=== PATIENT | male | born 1940 | race Caucasian/White ===

== ENCOUNTER 2022-03-02 22:35 | Emergency (ER) | payer MEDICARE, OTHER ==
[~2022-03-02] VITALS: Ht 172.7 cm; Wt 65.9 kg
[2022-03-02 23:47] VITALS: BP 130/85
== END 2022-03-03 04:00 | disposition home or self-care (01) ==
LOC: ER 22:35
DX: S50.811A Abrasion of right forearm, initial encounter (principal); M54.6 Pain in thoracic spine; W18.39XA Other fall on same level, initial encounter; Y93.89 Activity, other specified; Y92.89 Other specified places as the place of occurrence of the external cause; Y99.8 Other external cause status
CPT/HCPCS: 71045; 71250; 73090; 73562; 74176

== ENCOUNTER 2023-07-25 09:23 | Inpatient (IN) | payer OTHER ==
[~2023-07-25] VITALS: Ht 175.3 cm; Wt 55.8 kg
[2023-07-25] VITALS (26 sets, daily range): BP systolic 114–159; BP diastolic 14–110; PULSE 69–114; RESP 15–92; TEMP 97.5–98; O2SAT 89–97
[2023-07-25 10:09] LABS: Hematocrit 41.1 % (41.0-53.0); Hemoglobin 13.4 g/dL (13.5-17.5); Mean Corpuscular Hgb Conc. 32.5 g/dL (32.0-36.0); Mean Corpuscular Volume 92.2 fL (80.0-100.0); Red Blood Cells 4.46 10^6/uL (4.5-5.90); Red Cell Distribution Width 14.9 % (11.8-14.3); White Blood Cell 11.9 10^3/uL (4.4-10.8)
[2023-07-25 10:22] LABS: Band Neutrophils % (manual) 0; Basophils % (manual) 0 (0.0-2.0); Blast Cells 0; Eosinophils % (manual) 0 (0-7); Metamyelocytes % 0; Myelocytes % 0; Promyelocytes % 0; Reactive Lymphocytes 0
[2023-07-25 10:41] LABS: Lymphocytes % (manual) 3 (10.0-50.0); Monocytes % (manual) 6 (0-12); Platelet Estimate Adequate
[2023-07-25 10:44] LABS: Alanine Aminotransferase 29 U/L (7-40); Albumin 3.8 g/dL (3.2-4.8); Alkaline Phosphatase 70 U/L (46-116); Anion Gap 12 (5-15); Aspartate Aminotransferase 35 U/L (13-40); BUN/Creatinine Ratio 23.9 (10.0-20.0); Blood Urea Nitrogen 37 mg/dL (9-23); Calcium 8.6 mg/dL (8.7-10.4); Carbon Dioxide 24 mmol/L (20-30); Chloride 110 mmol/L (98-107); Glucose 125 mg/dL (74-106); Magnesium 2.1 mg/dL (1.6-2.6); Potassium 3.8 mmol/L (3.5-5.1); Sodium 146 mmol/L (136-145)
[2023-07-25 10:45] LABS: Bilirubin, Total 2.3 mg/dL (0.2-1.0)
[2023-07-25] MEDS: AMIODARONE 450mg/250ml AE 250 ML IV SCH (10:52)
[2023-07-25] MEDS: AMIODARONE BOLUS KIT 100 ML IV ONE (10:52)
[2023-07-25] MEDS: FUROSEMIDE 40 MG/4 ML VIAL IV ONE (12:05)
[2023-07-25 13:12] LABS: Urine Bacteria NONE SEEN /hpf (None Seen); Urine Blood 1+ /uL (Negative); Urine Clarity Clear (Clear); Urine Color Yellow (Yellow); Urine Hyaline Cast FEW /lpf (0 - 2); Urine Mucus FEW (None Seen); Urine Protein, UAD 1+ (Negative); Urine Specific Gravity 1.014 (1.001-1.035); Urine Urobilinogen Normal (Negative); Urine WBC 19 /hpf (0 - 3); Urine pH 5.5 (5.0-8.0)
[2023-07-25] MEDS ORDERED: ONDANSETRON HCL 4 MG/2 ML VIAL IV PRN (13:15)
[2023-07-25] MEDS ORDERED: NITROGLYCERIN 0.4 MG SL TAB SL PRN (13:15)
[2023-07-25] MEDS ORDERED: MORPHINE SULFATE INJ 2 MG/ml SYRG IV PRN (13:15)
[2023-07-25] MEDS ORDERED: LABETALOL HCL 5 MG/ML 4ML SYRINGE IV PRN (14:15)
[2023-07-25 14:57] LABS: INR 1.31 (0.9-1.15); Partial Thromboplastin Time 21.2 SEC (24.5-34.5); Prothrombin Time 13.5 sec (9.3-11.8)
[2023-07-25 15:29] LABS: COVID19 ANTIGEN SOFIA FIA NEGATIVE (NEGATIVE)
[2023-07-25] MEDS: MAGNESIUM SULFATE 1GM/100ML 100 ML IV SCH (15:30)
[2023-07-25 15:37] LABS: Lactic Acid w/Reflex 2.5 mmol/L (0.4-2.0)
[2023-07-25 15:42] LABS: Triglycerides 60 mg/dL (< 150)
[2023-07-25] MEDS: AZITHROMYCIN 500MG/ 250ML 250 ML IV ONE (15:42)
[2023-07-25] MEDS: cefTRIAXone 1GM/50ML D5W 50 ML IV ONE (15:42)
[2023-07-25 15:43] LABS: LDL Cholesterol 69 mg/dL (< 100)
[2023-07-25] MEDS: SODIUM CHLORIDE 0.9% 1,000 ML IV ONE (15:43)
[2023-07-25] MEDS: ASPirin 325 MG TAB PO ONE (15:43)
[2023-07-25 15:44] LABS: Cholesterol 136 mg/dL (< 200); HDL Cholesterol 55 mg/dL (40-59)
[2023-07-25] MEDS: METOPROLOL TARTRATE 50 MG TAB PO SCH (15:51)
[2023-07-25] MEDS: AMIODARONE 450mg/250ml AE 250 ML IV ONE (18:41)
[2023-07-25] MEDS: FUROSEMIDE 20 MG/2 ML VIAL IV SCH (18:44)
[2023-07-25] MEDS: IPRATROPIUM BROM 0.5 MG/2.5ML INH SOL NEB SCH (19:32)
[2023-07-25] MEDS: LEVALBUTEROL HCL 1.25 MG/3 ML NEB NEB SCH (19:33)
[2023-07-25] MEDS: ATORVASTATIN 20 MG TAB PO SCH (22:49)
[2023-07-25] MEDS: ENOXAPARIN SOD 100 MG/1 ML SYRINGE SC SCH (22:49)
[2023-07-25] MEDS: HYDROcodone-ACET 5/325MG TAB PO PRN (22:51)
[2023-07-26] VITALS (42 sets, daily range): BP systolic 111–172; BP diastolic 79–110; PULSE 54–96; RESP 12–35; TEMP 96.5–98; O2SAT 90–99
[2023-07-26] MEDS ORDERED: AMIODARONE 450mg/250ml AE 250 ML IV SCH (02:15)
[2023-07-26 05:25] LABS: Basophils # (auto) 0 10 ^3/uL (0-0.2); Basophils % (auto) 0.2 % (0.0-2.0); Eosinophils # (auto) 0 10 ^3/uL (0-0.8); Hematocrit 37.7 % (41.0-53.0); Hemoglobin 12.4 g/dL (13.5-17.5); Lymphocytes # (auto) 0.5 10 ^3/uL (0.4-5.4); Lymphocytes % (auto) 4.6 % (10.0-50.0); Mean Corpuscular Hemoglobin 30.1 pg (28.0-32.0); Mean Corpuscular Hgb Conc. 32.8 g/dL (32.0-36.0); Mean Corpuscular Volume 91.8 fL (80.0-100.0); Monocytes # (auto) 0.9 10 ^3/uL (0-1.3); Monocytes % (auto) 7.4 % (0.0-12.0); Neutrophils # (auto) 10.3 10 ^3/uL (1.6-8.6); Neutrophils % (auto) 87.8 % (37.0-80.0); Red Blood Cells 4.11 10^6/uL (4.5-5.90); Red Cell Distribution Width 14.7 % (11.8-14.3); White Blood Cell 11.7 10^3/uL (4.4-10.8)
[2023-07-26 05:38] LABS: Alanine Aminotransferase 165 U/L (7-40); Alkaline Phosphatase 62 U/L (46-116); Anion Gap 10 (5-15); BUN/Creatinine Ratio 26.3 (10.0-20.0); Blood Urea Nitrogen 44 mg/dL (9-23); Calcium 8.1 mg/dL (8.7-10.4); Carbon Dioxide 26 mmol/L (20-30); Chloride 107 mmol/L (98-107); Glucose 106 mg/dL (74-106); Magnesium 2.5 mg/dL (1.6-2.6); Potassium 3.9 mmol/L (3.5-5.1); Sodium 143 mmol/L (136-145)
[2023-07-26 05:39] LABS: Albumin 3.2 g/dL (3.2-4.8); Aspartate Aminotransferase 214 U/L (13-40)
[2023-07-26 05:40] LABS: Bilirubin, Total 1.4 mg/dL (0.2-1.0); Total Protein 5.1 g/dL (5.7-8.2)
[2023-07-26 06:02] LABS: Triglycerides 45 mg/dL (< 150)
[2023-07-26 06:03] LABS: LDL Cholesterol 64 mg/dL (< 100)
[2023-07-26 06:04] LABS: Cholesterol 124 mg/dL (< 200); HDL Cholesterol 49 mg/dL (40-59)
[2023-07-26] MEDS: cefTRIAXone 1GM/50ML D5W 50 ML IV SCH (08:57)
[2023-07-26] MEDS ORDERED: FUROSEMIDE 20 MG/2 ML VIAL IV SCH (10:00)
[2023-07-26] MEDS ORDERED: ENOXAPARIN SOD 40 MG/0.4 ML SYRINGE SC SCH (10:00)
[2023-07-26] MEDS: PANTOPRAZOLE 40 MG TAB PO SCH (10:03)
[2023-07-26] MEDS: ASPirin-EC 81 mg tab PO SCH (10:03)
[2023-07-26] MEDS: AZITHROMYCIN 500MG/ 250ML 250 ML IV SCH (10:05)
[2023-07-26] MEDS: FUROSEMIDE 20 MG/2 ML VIAL IV ONE ×2 (13:38→14:07)
[2023-07-26] MEDS: FUROSEMIDE 20 MG/2 ML VIAL ONE (13:38)
[2023-07-26] MEDS: AMIODARONE HCL 200 MG TAB PO ONE (14:07)
[2023-07-26 14:25] LABS: Base Excess -7.2 mmol/L (-2.0-2.0)
[2023-07-26] MEDS: hydrALAZINE HCL 20 MG/ML VL IV PRN (17:54)
[2023-07-26] MEDS: METOPROLOL TARTRATE 50 MG TAB PO SCH (21:34)
[2023-07-26] MEDS: AMIODARONE HCL 200 MG TAB PO SCH (21:35)
[2023-07-27] VITALS (24 sets, daily range): BP systolic 117–154; BP diastolic 61–90; PULSE 63–110; RESP 9–22; TEMP 97.5–98.3; O2SAT 95–100
[2023-07-27 04:51] LABS: Basophils # (auto) 0 10 ^3/uL (0-0.2); Basophils % (auto) 0.2 % (0.0-2.0); Eosinophils # (auto) 0 10 ^3/uL (0-0.8); Hematocrit 38.9 % (41.0-53.0); Hemoglobin 12.6 g/dL (13.5-17.5); Lymphocytes # (auto) 0.6 10 ^3/uL (0.4-5.4); Lymphocytes % (auto) 4.9 % (10.0-50.0); Mean Corpuscular Hemoglobin 29.8 pg (28.0-32.0); Mean Corpuscular Hgb Conc. 32.5 g/dL (32.0-36.0); Mean Corpuscular Volume 91.7 fL (80.0-100.0); Monocytes # (auto) 0.7 10 ^3/uL (0-1.3); Monocytes % (auto) 5.6 % (0.0-12.0); Neutrophils % (auto) 89.3 % (37.0-80.0); Nucleated Red Blood Cells % 0.1 %; Red Blood Cells 4.24 10^6/uL (4.5-5.90); Red Cell Distribution Width 14.6 % (11.8-14.3); White Blood Cell 12.4 10^3/uL (4.4-10.8)
[2023-07-27 05:14] LABS: Alanine Aminotransferase 996 U/L (7-40); Albumin 2.9 g/dL (3.2-4.8); Alkaline Phosphatase 88 U/L (46-116); Anion Gap 10 (5-15); BUN/Creatinine Ratio 32.1 (10.0-20.0); Bilirubin, Total 1.2 mg/dL (0.2-1.0); Calcium 7.9 mg/dL (8.7-10.4); Carbon Dioxide 27 mmol/L (20-30); Chloride 106 mmol/L (98-107); Glucose 94 mg/dL (74-106); Magnesium 2.3 mg/dL (1.6-2.6); Phosphorus 5.8 mg/dL (2.4-5.1); Potassium 3.6 mmol/L (3.5-5.1); Sodium 143 mmol/L (136-145); Total Protein 4.8 g/dL (5.7-8.2)
[2023-07-27 05:25] LABS: Aspartate Aminotransferase 1658 U/L (13-40)
[2023-07-27 05:42] LABS: Blood Urea Nitrogen 59 mg/dL (9-23)
[2023-07-27] MEDS: ENOXAPARIN SOD 100 MG/1 ML SYRINGE SC SCH (10:00)
[2023-07-27] MEDS: MUPIROCIN 2% OINT 15gm or 22gm TOP ONE (10:45)
[2023-07-27] MEDS: CEFEPIME 1GM/ 50ML 50 ML IV SCH (12:01)
[2023-07-27] MEDS: FUROSEMIDE 40 MG/4 ML VIAL IV SCH (18:15)
[2023-07-27] MEDS: hydrALAZINE HCL 25 MG TAB PO SCH (21:58)
[2023-07-27] MEDS: LINEZOLID 600MG/300ML 300 ML IV SCH (21:58)
[2023-07-28] VITALS (32 sets, daily range): BP systolic 117–162; BP diastolic 14–76; PULSE 41–88; RESP 11–23; TEMP 97.5–97.9; O2SAT 93–99
[2023-07-28 07:12] LABS: Basophils # (auto) 0 10 ^3/uL (0-0.2); Basophils % (auto) 0.1 % (0.0-2.0); Eosinophils # (auto) 0 10 ^3/uL (0-0.8); Hematocrit 40.5 % (41.0-53.0); Hemoglobin 13.5 g/dL (13.5-17.5); Lymphocytes # (auto) 0.4 10 ^3/uL (0.4-5.4); Mean Corpuscular Hemoglobin 30.3 pg (28.0-32.0); Mean Corpuscular Hgb Conc. 33.2 g/dL (32.0-36.0); Mean Corpuscular Volume 91.1 fL (80.0-100.0); Monocytes # (auto) 0.7 10 ^3/uL (0-1.3); Monocytes % (auto) 6.5 % (0.0-12.0); Neutrophils # (auto) 9.1 10 ^3/uL (1.6-8.6); Neutrophils % (auto) 89.4 % (37.0-80.0); Nucleated Red Blood Cells % 0.1 %; Red Blood Cells 4.45 10^6/uL (4.5-5.90); Red Cell Distribution Width 14.8 % (11.8-14.3); White Blood Cell 10.2 10^3/uL (4.4-10.8)
[2023-07-28 07:30] LABS: Alanine Aminotransferase 819 U/L (7-40); Alkaline Phosphatase 87 U/L (46-116); Anion Gap 12 (5-15); Calcium 8.2 mg/dL (8.5-10.1); Carbon Dioxide 27 mmol/L (20-30); Chloride 103 mmol/L (98-107); Glucose 94 mg/dL (74-106); Potassium 2.6 mmol/L (3.5-5.1); Sodium 142 mmol/L (136-145)
[2023-07-28 07:31] LABS: Albumin 3.1 g/dL (3.2-4.8); Aspartate Aminotransferase 497 U/L (13-40)
[2023-07-28 07:32] LABS: Bilirubin, Total 1.3 mg/dL (0.2-1.0); Phosphorus 4.4 mg/dL (2.4-5.1); Total Protein 5.2 g/dL (5.7-8.2)
[2023-07-28 07:50] LABS: Blood Urea Nitrogen 48 mg/dL (9-23)
[2023-07-28 07:54] LABS: Magnesium 2.1 mg/dL (1.6-2.6)
[2023-07-28] MEDS: POTASSIUM CHLORIDE 60 MEQ, LIDOCAINE 1% (LOCAL ANESTH.) 6 ML in SODIUM CHL 0.9% 500 ML IV ONE (09:17)
[2023-07-28] MEDS: ENOXAPARIN SOD 60 MG/0.6 ML SYRINGE SC SCH (09:30)
[2023-07-28] MEDS: EMPAGLIFLOZIN 10 MG TAB PO SCH (10:00)
[2023-07-28 10:23] LABS: Base Excess 2.3 mmol/L (-2.0-2.0)
[2023-07-28] MEDS: METOPROLOL SUCCINATE XL 50 MG TAB PO SCH (11:30)
[2023-07-28] MEDS: Ensure HIGH Protein Chocolate 8oz Bottle PO SCH (12:00)
[2023-07-28] MEDS: ISOSORBIDE MONONITRATE ER 60 MG TAB PO SCH (13:53)
[2023-07-28 16:39] LABS: Alanine Aminotransferase 726 U/L (7-40); Albumin 2.9 g/dL (3.2-4.8); Alkaline Phosphatase 81 U/L (46-116); Anion Gap 7 (5-15); Aspartate Aminotransferase 343 U/L (13-40); BUN/Creatinine Ratio 25.9 (10.0-20.0); Blood Urea Nitrogen 45 mg/dL (9-23); Calcium 7.7 mg/dL (8.7-10.4); Carbon Dioxide 28 mmol/L (20-30); Chloride 105 mmol/L (98-107); Glucose 120 mg/dL (74-106); Potassium 3.4 mmol/L (3.5-5.1); Sodium 140 mmol/L (136-145)
[2023-07-28 16:40] LABS: Bilirubin, Total 1.1 mg/dL (0.2-1.0); Total Protein 5.1 g/dL (5.7-8.2)
[2023-07-28] MEDS: POTASSIUM EFFERVESENT TAB 25 MEQ PO ONE (17:55)
[2023-07-28] MEDS: POTASSIUM CHLORIDE 20 MEQ, LIDOCAINE 1% (LOCAL ANESTH.) 2 ML in SODIUM CHL 0.9% 100 ML IV ONE (18:34)
[2023-07-29] VITALS (26 sets, daily range): BP systolic 122–167; BP diastolic 56–94; PULSE 70–110; RESP 13–21; TEMP 96.4–98.4; O2SAT 89–100
[2023-07-29 05:07] LABS: Basophils # (auto) 0 10 ^3/uL (0-0.2); Basophils % (auto) 0.3 % (0.0-2.0); Eosinophils # (auto) 0 10 ^3/uL (0-0.8); Eosinophils % (auto) 0.2 % (0.0-7.0); Hematocrit 40.3 % (41.0-53.0); Hemoglobin 13.3 g/dL (13.5-17.5); Lymphocytes # (auto) 0.4 10 ^3/uL (0.4-5.4); Lymphocytes % (auto) 3.9 % (10.0-50.0); Mean Corpuscular Hemoglobin 30.1 pg (28.0-32.0); Mean Corpuscular Volume 91.2 fL (80.0-100.0); Monocytes # (auto) 0.9 10 ^3/uL (0-1.3); Monocytes % (auto) 8.3 % (0.0-12.0); Neutrophils # (auto) 8.9 10 ^3/uL (1.6-8.6); Neutrophils % (auto) 87.3 % (37.0-80.0); Red Blood Cells 4.42 10^6/uL (4.5-5.90); Red Cell Distribution Width 14.8 % (11.8-14.3); White Blood Cell 10.2 10^3/uL (4.4-10.8)
[2023-07-29 05:18] LABS: Alanine Aminotransferase 666 U/L (7-40); Albumin 2.9 g/dL (3.2-4.8); Alkaline Phosphatase 80 U/L (46-116); Anion Gap 9 (5-15); Aspartate Aminotransferase 265 U/L (13-40); BUN/Creatinine Ratio 28.6 (10.0-20.0); Blood Urea Nitrogen 42 mg/dL (9-23); Calcium 7.9 mg/dL (8.7-10.4); Carbon Dioxide 28 mmol/L (20-30); Chloride 104 mmol/L (98-107); Glucose 119 mg/dL (74-106); Phosphorus 2.7 mg/dL (2.4-5.1); Potassium 3.2 mmol/L (3.5-5.1); Sodium 141 mmol/L (136-145)
[2023-07-29 05:19] LABS: Bilirubin, Total 1.5 mg/dL (0.2-1.0); Total Protein 5.2 g/dL (5.7-8.2)
[2023-07-29] MEDS: METOPROLOL SUCCINATE XL 50 MG TAB PO SCH (08:26)
[2023-07-29] MEDS: POTASSIUM CHLORIDE 40 MEQ, LIDOCAINE 1% (LOCAL ANESTH.) 4 ML in SODIUM CHL 0.9% 250 ML IV ONE (09:00)
[2023-07-29 11:01] LABS: Base Excess 4.9 mmol/L (-2.0-2.0)
[2023-07-29] MEDS ORDERED: FUR20T GT (15:02)
[2023-07-29] MEDS ORDERED: METO-6 PO (15:02)
[2023-07-29] MEDS ORDERED: ISO60SRT PO (15:02)
[2023-07-29] MEDS ORDERED: DOXY1CAP57 PO (15:02)
[2023-07-29] MEDS ORDERED: EMPA1TAB PO (15:02)
[2023-07-29 22:28] LABS: Alanine Aminotransferase 544 U/L (7-40); Albumin 3.2 g/dL (3.2-4.8); Alkaline Phosphatase 80 U/L (46-116); Anion Gap 6 (5-15); Aspartate Aminotransferase 228 U/L (13-40); BUN/Creatinine Ratio 27.8 (10.0-20.0); Blood Urea Nitrogen 37 mg/dL (9-23); Calcium 8.1 mg/dL (8.7-10.4); Carbon Dioxide 34 mmol/L (20-30); Chloride 103 mmol/L (98-107); Glucose 110 mg/dL (74-106); Potassium 3.1 mmol/L (3.5-5.1); Sodium 143 mmol/L (136-145); Total Protein 5.5 g/dL (5.7-8.2)
[2023-07-30] VITALS (17 sets, daily range): BP systolic 131–154; BP diastolic 76–90; PULSE 54–86; RESP 15–21; TEMP 97.6–99.3; O2SAT 92–98
[2023-07-31] VITALS (16 sets, daily range): BP systolic 123–171; BP diastolic 71–95; PULSE 58–96; RESP 0–19; TEMP 97.3–97.8; O2SAT 91–100
[2023-07-31 06:55] LABS: Basophils # (auto) 0 10 ^3/uL (0-0.2); Basophils % (auto) 0.1 % (0.0-2.0); Eosinophils # (auto) 0 10 ^3/uL (0-0.8); Eosinophils % (auto) 0.4 % (0.0-7.0); Hematocrit 41.3 % (41.0-53.0); Hemoglobin 13.6 g/dL (13.5-17.5); Lymphocytes # (auto) 0.3 10 ^3/uL (0.4-5.4); Lymphocytes % (auto) 4.3 % (10.0-50.0); Mean Corpuscular Hemoglobin 29.7 pg (28.0-32.0); Mean Corpuscular Hgb Conc. 32.9 g/dL (32.0-36.0); Mean Corpuscular Volume 90.4 fL (80.0-100.0); Monocytes # (auto) 0.7 10 ^3/uL (0-1.3); Monocytes % (auto) 8.8 % (0.0-12.0); Neutrophils # (auto) 6.9 10 ^3/uL (1.6-8.6); Neutrophils % (auto) 86.4 % (37.0-80.0); Red Blood Cells 4.57 10^6/uL (4.5-5.90); Red Cell Distribution Width 14.5 % (11.8-14.3)
[2023-07-31 06:59] LABS: Chloride 101 mmol/L (98-107); Potassium 2.6 mmol/L (3.5-5.1); Sodium 143 mmol/L (136-145)
[2023-07-31 07:00] LABS: Anion Gap 6 (5-15); Carbon Dioxide 36 mmol/L (20-30)
[2023-07-31 07:05] LABS: BUN/Creatinine Ratio 27.6 (10.0-20.0); Blood Urea Nitrogen 29 mg/dL (9-23)
[2023-07-31 07:08] LABS: Glucose 102 mg/dL (74-106)
[2023-07-31] MEDS: POTASSIUM CHL 20MEQ/100ML 100 ML IV SCH (18:12)
[2023-07-31] MEDS: ENOXAPARIN SOD 60 MG/0.6 ML SYRINGE SC SCH (21:04)
[2023-08-01] VITALS (12 sets, daily range): BP systolic 101–157; BP diastolic 65–83; PULSE 53–101; RESP 0–22; TEMP 97.6–99; O2SAT 94–100
[2023-08-01 06:13] LABS: Basophils # (auto) 0 10 ^3/uL (0-0.2); Basophils % (auto) 0.2 % (0.0-2.0); Eosinophils # (auto) 0.1 10 ^3/uL (0-0.8); Eosinophils % (auto) 0.7 % (0.0-7.0); Hematocrit 44.9 % (41.0-53.0); Hemoglobin 15.1 g/dL (13.5-17.5); Lymphocytes # (auto) 0.7 10 ^3/uL (0.4-5.4); Lymphocytes % (auto) 6.9 % (10.0-50.0); Mean Corpuscular Hemoglobin 30.4 pg (28.0-32.0); Mean Corpuscular Hgb Conc. 33.7 g/dL (32.0-36.0); Mean Corpuscular Volume 90.2 fL (80.0-100.0); Monocytes # (auto) 0.9 10 ^3/uL (0-1.3); Neutrophils % (auto) 83.2 % (37.0-80.0); Nucleated Red Blood Cells % 0.1 %; Red Blood Cells 4.98 10^6/uL (4.5-5.90); Red Cell Distribution Width 14.2 % (11.8-14.3); White Blood Cell 9.6 10^3/uL (4.4-10.8)
[2023-08-01 06:24] LABS: Calcium 8.5 mg/dL (8.7-10.4); Chloride 100 mmol/L (98-107); Potassium 3.5 mmol/L (3.5-5.1); Sodium 141 mmol/L (136-145)
[2023-08-01 06:25] LABS: Anion Gap 7 (5-15); Carbon Dioxide 34 mmol/L (20-30)
[2023-08-01 06:30] LABS: BUN/Creatinine Ratio 23.4 (10.0-20.0); Blood Urea Nitrogen 25 mg/dL (9-23); Glucose 101 mg/dL (74-106)
[2023-08-01 09:25] LABS: Hepatitis B Surface Antigen Negative (Negative)
[2023-08-01 09:46] LABS: Hepatitis B Core IgM Negative; Hepatitis C Antibody Negative (Negative)
[2023-08-01 09:52] LABS: Hepatitis A Ab IgM Negative
[2023-08-01] MEDS: APIXABAN 5 MG TAB PO SCH (22:00)
[2023-08-01] MEDS: SACUBITRIL-VALSARTAN 24mg/26mg TAB PO SCH (22:00)
[2023-08-02] VITALS (15 sets, daily range): BP systolic 127–148; BP diastolic 45–85; PULSE 53–75; RESP 0–20; TEMP 97.6–98; O2SAT 93–100
[2023-08-02 07:10] LABS: Basophils # (auto) 0 10 ^3/uL (0-0.2); Basophils % (auto) 0.4 % (0.0-2.0); Eosinophils # (auto) 0.2 10 ^3/uL (0-0.8); Eosinophils % (auto) 1.7 % (0.0-7.0); Hematocrit 40.1 % (41.0-53.0); Hemoglobin 13.4 g/dL (13.5-17.5); Lymphocytes # (auto) 0.6 10 ^3/uL (0.4-5.4); Lymphocytes % (auto) 6.7 % (10.0-50.0); Mean Corpuscular Hemoglobin 30.3 pg (28.0-32.0); Mean Corpuscular Hgb Conc. 33.4 g/dL (32.0-36.0); Monocytes # (auto) 0.6 10 ^3/uL (0-1.3); Monocytes % (auto) 6.3 % (0.0-12.0); Neutrophils % (auto) 84.9 % (37.0-80.0); Nucleated Red Blood Cells % 0.1 %; Red Blood Cells 4.41 10^6/uL (4.5-5.90); Red Cell Distribution Width 14.4 % (11.8-14.3); White Blood Cell 9.5 10^3/uL (4.4-10.8)
[2023-08-02 07:18] LABS: Alanine Aminotransferase 217 U/L (7-40); Albumin 2.9 g/dL (3.2-4.8); Alkaline Phosphatase 70 U/L (46-116); Anion Gap 5 (5-15); Aspartate Aminotransferase 55 U/L (13-40); BUN/Creatinine Ratio 22.8 (10.0-20.0); Blood Urea Nitrogen 23 mg/dL (9-23); Carbon Dioxide 34 mmol/L (20-30); Chloride 101 mmol/L (98-107); Glucose 90 mg/dL (74-106); Potassium 3.4 mmol/L (3.5-5.1); Sodium 140 mmol/L (136-145)
[2023-08-02 07:19] LABS: Bilirubin, Total 2.4 mg/dL (0.2-1.0); Phosphorus 2.8 mg/dL (2.4-5.1)
[2023-08-02] MEDS: FUROSEMIDE 40 MG/4 ML VIAL IV SCH (10:00)
[2023-08-02] MEDS: SPIRONOLACTONE 25 MG TAB PO SCH (10:53)
[2023-08-02] MEDS: POTASSIUM CHL 20 Meq TABLET PO ONE (18:27)
[2023-08-02] MEDS: APIXABAN 5 MG TAB PO SCH (22:19)
[2023-08-03] VITALS (14 sets, daily range): BP systolic 104–148; BP diastolic 68–95; PULSE 58–72; RESP 0–18; TEMP 97.7–98.2; O2SAT 94–100
[2023-08-03] MEDS: LEVALBUTEROL HCL 1.25 MG/3 ML NEB ONE ×2 (05:49→18:07)
[2023-08-03] MEDS: IPRATROPIUM BROM 0.5 MG/2.5ML INH SOL ONE ×2 (05:50→18:07)
[2023-08-03 06:28] LABS: Basophils # (auto) 0 10 ^3/uL (0-0.2); Basophils % (auto) 0.2 % (0.0-2.0); Eosinophils # (auto) 0.1 10 ^3/uL (0-0.8); Eosinophils % (auto) 0.8 % (0.0-7.0); Hematocrit 42.6 % (41.0-53.0); Hemoglobin 14.2 g/dL (13.5-17.5); Lymphocytes # (auto) 0.7 10 ^3/uL (0.4-5.4); Lymphocytes % (auto) 6.6 % (10.0-50.0); Mean Corpuscular Hemoglobin 30.2 pg (28.0-32.0); Mean Corpuscular Hgb Conc. 33.3 g/dL (32.0-36.0); Mean Corpuscular Volume 90.7 fL (80.0-100.0); Monocytes # (auto) 0.6 10 ^3/uL (0-1.3); Monocytes % (auto) 5.4 % (0.0-12.0); Neutrophils # (auto) 9.1 10 ^3/uL (1.6-8.6); Nucleated Red Blood Cells % 0.1 %; Red Cell Distribution Width 14.3 % (11.8-14.3); White Blood Cell 10.5 10^3/uL (4.4-10.8)
[2023-08-03 06:41] LABS: Alanine Aminotransferase 188 U/L (7-40); Alkaline Phosphatase 72 U/L (46-116); Anion Gap 7 (5-15); Aspartate Aminotransferase 51 U/L (13-40); BUN/Creatinine Ratio 21.4 (10.0-20.0); Bilirubin, Total 2.5 mg/dL (0.2-1.0); Blood Urea Nitrogen 22 mg/dL (9-23); Calcium 8.2 mg/dL (8.7-10.4); Carbon Dioxide 32 mmol/L (20-30); Chloride 100 mmol/L (98-107); Glucose 99 mg/dL (74-106); Potassium 3.3 mmol/L (3.5-5.1); Sodium 139 mmol/L (136-145); Total Protein 5.3 g/dL (5.7-8.2)
[2023-08-03] MEDS: POTASSIUM CHL 20 Meq TABLET PO ONE (10:00)
[2023-08-04] VITALS (15 sets, daily range): BP systolic 88–128; BP diastolic 61–72; PULSE 51–77; RESP 0–19; TEMP 98.2–98.7; O2SAT 92–100
[2023-08-04 05:26] LABS: Basophils # (auto) 0 10 ^3/uL (0-0.2); Basophils % (auto) 0.4 % (0.0-2.0); Eosinophils # (auto) 0.1 10 ^3/uL (0-0.8); Eosinophils % (auto) 0.6 % (0.0-7.0); Hematocrit 43.4 % (41.0-53.0); Hemoglobin 14.5 g/dL (13.5-17.5); Lymphocytes # (auto) 0.7 10 ^3/uL (0.4-5.4); Lymphocytes % (auto) 5.9 % (10.0-50.0); Mean Corpuscular Hemoglobin 30.2 pg (28.0-32.0); Mean Corpuscular Hgb Conc. 33.3 g/dL (32.0-36.0); Mean Corpuscular Volume 90.5 fL (80.0-100.0); Monocytes # (auto) 0.6 10 ^3/uL (0-1.3); Monocytes % (auto) 5.4 % (0.0-12.0); Neutrophils # (auto) 9.8 10 ^3/uL (1.6-8.6); Neutrophils % (auto) 87.7 % (37.0-80.0); Nucleated Red Blood Cells % 0.1 %; Red Blood Cells 4.79 10^6/uL (4.5-5.90); Red Cell Distribution Width 14.1 % (11.8-14.3); White Blood Cell 11.2 10^3/uL (4.4-10.8)
[2023-08-04 05:39] LABS: Alanine Aminotransferase 162 U/L (7-40); Alkaline Phosphatase 73 U/L (46-116); Anion Gap 4 (5-15); Aspartate Aminotransferase 56 U/L (13-40); BUN/Creatinine Ratio 23.5 (10.0-20.0); Bilirubin, Total 2.5 mg/dL (0.2-1.0); Blood Urea Nitrogen 27 mg/dL (9-23); Calcium 8.2 mg/dL (8.7-10.4); Carbon Dioxide 35 mmol/L (20-30); Chloride 102 mmol/L (98-107); Glucose 93 mg/dL (74-106); Magnesium 2.2 mg/dL (1.6-2.6); Potassium 3.7 mmol/L (3.5-5.1); Sodium 141 mmol/L (136-145)
[2023-08-04 05:40] LABS: Total Protein 5.4 g/dL (5.7-8.2)
[2023-08-04] MEDS: LEVALBUTEROL HCL 1.25 MG/3 ML NEB ONE ×2 (11:45→23:36)
[2023-08-04] MEDS: IPRATROPIUM BROM 0.5 MG/2.5ML INH SOL ONE (11:45)
[2023-08-05] VITALS (16 sets, daily range): BP systolic 110–146; BP diastolic 62–75; PULSE 55–69; RESP 0–19; TEMP 97.6–98.4; O2SAT 94–99
[2023-08-05 05:35] LABS: Basophils # (auto) 0.1 10 ^3/uL (0-0.2); Basophils % (auto) 0.7 % (0.0-2.0); Eosinophils # (auto) 0.1 10 ^3/uL (0-0.8); Eosinophils % (auto) 1.2 % (0.0-7.0); Hematocrit 41.1 % (41.0-53.0); Hemoglobin 13.8 g/dL (13.5-17.5); Lymphocytes # (auto) 0.7 10 ^3/uL (0.4-5.4); Lymphocytes % (auto) 7.7 % (10.0-50.0); Mean Corpuscular Hemoglobin 30.4 pg (28.0-32.0); Mean Corpuscular Hgb Conc. 33.6 g/dL (32.0-36.0); Mean Corpuscular Volume 90.7 fL (80.0-100.0); Monocytes # (auto) 0.6 10 ^3/uL (0-1.3); Monocytes % (auto) 6.2 % (0.0-12.0); Neutrophils % (auto) 84.2 % (37.0-80.0); Red Blood Cells 4.53 10^6/uL (4.5-5.90); White Blood Cell 9.5 10^3/uL (4.4-10.8)
[2023-08-05 05:53] LABS: Alanine Aminotransferase 132 U/L (7-40); Alkaline Phosphatase 70 U/L (46-116); Anion Gap 6 (5-15); Aspartate Aminotransferase 46 U/L (13-40); BUN/Creatinine Ratio 28.3 (10.0-20.0); Blood Urea Nitrogen 36 mg/dL (9-23); Calcium 8.4 mg/dL (8.7-10.4); Carbon Dioxide 33 mmol/L (20-30); Chloride 102 mmol/L (98-107); Glucose 96 mg/dL (74-106); Magnesium 2.2 mg/dL (1.6-2.6); Potassium 3.5 mmol/L (3.5-5.1); Sodium 141 mmol/L (136-145)
[2023-08-05 05:54] LABS: Total Protein 5.2 g/dL (5.7-8.2)
[2023-08-05] MEDS: IPRATROPIUM BROM 0.5 MG/2.5ML INH SOL ONE (18:03)
[2023-08-05] MEDS: LEVALBUTEROL HCL 1.25 MG/3 ML NEB ONE (18:03)
[2023-08-06] VITALS (8 sets, daily range): BP systolic 114–145; BP diastolic 68–82; PULSE 52–69; RESP 16–19; TEMP 97.1–98.4; O2SAT 94–98
[2023-08-06] MEDS: DOCUSATE SOD 100 MG CAP PO PRN (05:23)
[2023-08-06] MEDS ORDERED: LEVALBUTEROL HCL 1.25 MG/3 ML NEB ONE (05:58)
[2023-08-06] MEDS ORDERED: IPRATROPIUM BROM 0.5 MG/2.5ML INH SOL ONE (05:59)
[2023-08-06 07:00] LABS: Basophils # (auto) 0.1 10 ^3/uL (0-0.2); Basophils % (auto) 0.8 % (0.0-2.0); Eosinophils # (auto) 0.2 10 ^3/uL (0-0.8); Eosinophils % (auto) 1.8 % (0.0-7.0); Hematocrit 40.8 % (41.0-53.0); Hemoglobin 13.6 g/dL (13.5-17.5); Lymphocytes # (auto) 0.8 10 ^3/uL (0.4-5.4); Lymphocytes % (auto) 9.2 % (10.0-50.0); Mean Corpuscular Hgb Conc. 33.3 g/dL (32.0-36.0); Mean Corpuscular Volume 90.1 fL (80.0-100.0); Monocytes # (auto) 0.7 10 ^3/uL (0-1.3); Monocytes % (auto) 7.9 % (0.0-12.0); Neutrophils # (auto) 6.8 10 ^3/uL (1.6-8.6); Neutrophils % (auto) 80.3 % (37.0-80.0); Nucleated Red Blood Cells % 0.2 %; Red Blood Cells 4.53 10^6/uL (4.5-5.90); Red Cell Distribution Width 13.8 % (11.8-14.3); White Blood Cell 8.5 10^3/uL (4.4-10.8)
[2023-08-06 07:15] LABS: Alanine Aminotransferase 111 U/L (7-40); Alkaline Phosphatase 70 U/L (46-116); Anion Gap 7 (5-15); Aspartate Aminotransferase 38 U/L (13-40); BUN/Creatinine Ratio 28.8 (10.0-20.0); Blood Urea Nitrogen 36 mg/dL (9-23); Calcium 8.3 mg/dL (8.7-10.4); Carbon Dioxide 33 mmol/L (20-30); Chloride 100 mmol/L (98-107); Glucose 99 mg/dL (74-106); Magnesium 2.2 mg/dL (1.6-2.6); Potassium 3.6 mmol/L (3.5-5.1); Sodium 140 mmol/L (136-145); Total Protein 5.2 g/dL (5.7-8.2)
[2023-08-07] VITALS (11 sets, daily range): BP systolic 100–127; BP diastolic 55–75; PULSE 60–99; RESP 16–19; TEMP 97–98.5; O2SAT 94–100
[2023-08-07 05:45] LABS: Basophils # (auto) 0.1 10 ^3/uL (0-0.2); Basophils % (auto) 0.7 % (0.0-2.0); Eosinophils # (auto) 0.1 10 ^3/uL (0-0.8); Eosinophils % (auto) 1.4 % (0.0-7.0); Hematocrit 41.4 % (41.0-53.0); Hemoglobin 13.8 g/dL (13.5-17.5); Lymphocytes # (auto) 0.9 10 ^3/uL (0.4-5.4); Lymphocytes % (auto) 10.3 % (10.0-50.0); Mean Corpuscular Hemoglobin 30.3 pg (28.0-32.0); Mean Corpuscular Hgb Conc. 33.5 g/dL (32.0-36.0); Mean Corpuscular Volume 90.5 fL (80.0-100.0); Monocytes # (auto) 0.9 10 ^3/uL (0-1.3); Monocytes % (auto) 10.5 % (0.0-12.0); Neutrophils # (auto) 6.6 10 ^3/uL (1.6-8.6); Neutrophils % (auto) 77.1 % (37.0-80.0); Nucleated Red Blood Cells % 0.1 %; Red Blood Cells 4.57 10^6/uL (4.5-5.90); Red Cell Distribution Width 14.1 % (11.8-14.3); White Blood Cell 8.5 10^3/uL (4.4-10.8)
[2023-08-07 05:47] LABS: Alanine Aminotransferase 94 U/L (7-40); Alkaline Phosphatase 67 U/L (46-116); Anion Gap 5 (5-15); Aspartate Aminotransferase 37 U/L (13-40); BUN/Creatinine Ratio 32.2 (10.0-20.0); Bilirubin, Total 1.8 mg/dL (0.2-1.0); Blood Urea Nitrogen 38 mg/dL (9-23); Calcium 8.3 mg/dL (8.7-10.4); Carbon Dioxide 33 mmol/L (20-30); Chloride 101 mmol/L (98-107); Glucose 98 mg/dL (74-106); Magnesium 2.3 mg/dL (1.6-2.6); Potassium 3.6 mmol/L (3.5-5.1); Sodium 139 mmol/L (136-145); Total Protein 5.2 g/dL (5.7-8.2)
[2023-08-07] MEDS ORDERED: ALBUTEROL SULF 2.5 MG/0.5ML(0.5%) NEB SOLN ONE (06:21)
[2023-08-07] MEDS: AMIODARONE HCL 200 MG TAB PO SCH (10:36)
[2023-08-07] MEDS: ACETAMINOPHEN 325 MG TAB PO PRN (10:51)
[2023-08-07] MEDS ORDERED: IPRATROPIUM BROM 0.5 MG/2.5ML INH SOL ONE (17:59)
[2023-08-07] MEDS ORDERED: LEVALBUTEROL HCL 1.25 MG/3 ML NEB ONE (18:00)
[2023-08-08] VITALS (13 sets, daily range): BP systolic 92–135; BP diastolic 57–84; PULSE 62–67; RESP 15–20; TEMP 97.4–98.6; O2SAT 95–99
[2023-08-08 05:56] LABS: Basophils # (auto) 0.1 10 ^3/uL (0-0.2); Basophils % (auto) 0.6 % (0.0-2.0); Eosinophils # (auto) 0.1 10 ^3/uL (0-0.8); Eosinophils % (auto) 1.3 % (0.0-7.0); Hematocrit 44.5 % (41.0-53.0); Hemoglobin 14.7 g/dL (13.5-17.5); Lymphocytes % (auto) 11.3 % (10.0-50.0); Mean Corpuscular Hemoglobin 29.7 pg (28.0-32.0); Mean Corpuscular Volume 89.9 fL (80.0-100.0); Monocytes % (auto) 11.2 % (0.0-12.0); Neutrophils # (auto) 6.9 10 ^3/uL (1.6-8.6); Neutrophils % (auto) 75.6 % (37.0-80.0); Nucleated Red Blood Cells % 0.1 %; Red Blood Cells 4.95 10^6/uL (4.5-5.90); White Blood Cell 9.1 10^3/uL (4.4-10.8)
[2023-08-08 06:19] LABS: Alanine Aminotransferase 90 U/L (7-40); Albumin 3.2 g/dL (3.2-4.8); Alkaline Phosphatase 70 U/L (46-116); Anion Gap 7 (5-15); Aspartate Aminotransferase 41 U/L (13-40); BUN/Creatinine Ratio 38.2 (10.0-20.0); Bilirubin, Total 1.9 mg/dL (0.2-1.0); Calcium 8.6 mg/dL (8.7-10.4); Carbon Dioxide 33 mmol/L (20-30); Chloride 99 mmol/L (98-107); Glucose 92 mg/dL (74-106); Magnesium 2.2 mg/dL (1.6-2.6); Sodium 139 mmol/L (136-145)
[2023-08-08 06:20] LABS: Total Protein 5.7 g/dL (5.7-8.2)
[2023-08-08] MEDS ORDERED: LEVALBUTEROL HCL 1.25 MG/3 ML NEB ONE (06:24)
[2023-08-08] MEDS ORDERED: IPRATROPIUM BROM 0.5 MG/2.5ML INH SOL ONE (06:24)
[2023-08-08 06:28] LABS: Blood Urea Nitrogen 50 mg/dL (9-23)
[2023-08-09] VITALS (14 sets, daily range): BP systolic 90–148; BP diastolic 46–95; PULSE 64–74; RESP 14–19; TEMP 96.1–98.6; O2SAT 94–98
[2023-08-09] MEDS: LEVALBUTEROL HCL 1.25 MG/3 ML NEB ONE ×2 (00:10→11:47)
[2023-08-09 06:09] LABS: Basophils # (auto) 0.1 10 ^3/uL (0-0.2); Basophils % (auto) 0.7 % (0.0-2.0); Eosinophils # (auto) 0.1 10 ^3/uL (0-0.8); Hematocrit 40.4 % (41.0-53.0); Hemoglobin 13.4 g/dL (13.5-17.5); Lymphocytes # (auto) 0.8 10 ^3/uL (0.4-5.4); Lymphocytes % (auto) 8.4 % (10.0-50.0); Mean Corpuscular Hemoglobin 29.8 pg (28.0-32.0); Mean Corpuscular Hgb Conc. 33.1 g/dL (32.0-36.0); Mean Corpuscular Volume 90.2 fL (80.0-100.0); Monocytes # (auto) 1.1 10 ^3/uL (0-1.3); Monocytes % (auto) 11.8 % (0.0-12.0); Neutrophils % (auto) 78.1 % (37.0-80.0); Red Blood Cells 4.48 10^6/uL (4.5-5.90); Red Cell Distribution Width 13.7 % (11.8-14.3)
[2023-08-09 06:21] LABS: Alkaline Phosphatase 70 U/L (46-116)
[2023-08-09 06:22] LABS: Alanine Aminotransferase 86 U/L (7-40); Albumin 3.1 g/dL (3.2-4.8); Anion Gap 6 (5-15); Aspartate Aminotransferase 40 U/L (13-40); BUN/Creatinine Ratio 45.3 (10.0-20.0); Bilirubin, Total 1.4 mg/dL (0.2-1.0); Blood Urea Nitrogen 58 mg/dL (9-23); Calcium 8.6 mg/dL (8.7-10.4); Carbon Dioxide 33 mmol/L (20-30); Chloride 100 mmol/L (98-107); Glucose 108 mg/dL (74-106); Potassium 4.2 mmol/L (3.5-5.1); Sodium 139 mmol/L (136-145); Total Protein 5.2 g/dL (5.7-8.2)
[2023-08-09] MEDS: FUROSEMIDE 40 MG TAB PO SCH (10:23)
[2023-08-09] MEDS: METOPROLOL SUCCINATE XL 50 MG TAB PO SCH (10:24)
[2023-08-09] MEDS: IPRATROPIUM BROM 0.5 MG/2.5ML INH SOL ONE (11:46)
[2023-08-10 05:31] VITALS: BP 137/80; PULSE 69; RESP 16; TEMP 97.8; O2SAT 100
[2023-08-10 07:38] LABS: Basophils # (auto) 0.1 10 ^3/uL (0-0.2); Basophils % (auto) 0.5 % (0.0-2.0); Eosinophils # (auto) 0.1 10 ^3/uL (0-0.8); Eosinophils % (auto) 1.3 % (0.0-7.0); Hemoglobin 12.8 g/dL (13.5-17.5); Lymphocytes # (auto) 0.9 10 ^3/uL (0.4-5.4); Mean Corpuscular Hemoglobin 30.2 pg (28.0-32.0); Mean Corpuscular Hgb Conc. 32.8 g/dL (32.0-36.0); Mean Corpuscular Volume 92.1 fL (80.0-100.0); Monocytes # (auto) 1.1 10 ^3/uL (0-1.3); Monocytes % (auto) 9.9 % (0.0-12.0); Neutrophils # (auto) 8.6 10 ^3/uL (1.6-8.6); Neutrophils % (auto) 80.3 % (37.0-80.0); Red Blood Cells 4.23 10^6/uL (4.5-5.90); Red Cell Distribution Width 14.5 % (11.8-14.3); White Blood Cell 10.7 10^3/uL (4.4-10.8)
[2023-08-10 07:58] LABS: Alanine Aminotransferase 72 U/L (7-40); Alkaline Phosphatase 69 U/L (46-116); Anion Gap 5 (5-15); Aspartate Aminotransferase 61 U/L (13-40); BUN/Creatinine Ratio 25.4 (10.0-20.0); Calcium 8.9 mg/dL (8.5-10.1); Carbon Dioxide 30 mmol/L (20-30); Chloride 103 mmol/L (98-107); Glucose 89 mg/dL (74-106); Potassium 4.8 mmol/L (3.5-5.1); Sodium 138 mmol/L (136-145)
[2023-08-10 07:59] LABS: Bilirubin, Total 1.4 mg/dL (0.2-1.0); Total Protein 5.1 g/dL (5.7-8.2)
[2023-08-10 08:01] LABS: Blood Urea Nitrogen 31 mg/dL (9-23)
[2023-08-10 09:31] VITALS: BP 138/75; PULSE 68; RESP 17; TEMP 97.8; O2SAT 97
[2023-08-10] MEDS ORDERED: OMNIPAQUE 12mg/ml 500ml ORAL SOLUTION PO ONE (11:40)
[2023-08-10 13:00] VITALS: BP 60/32; PULSE 63; RESP 16; TEMP 98; O2SAT 93
[2023-08-10 16:31] VITALS: BP 84/55; PULSE 62; RESP 18; TEMP 97.4; O2SAT 96
[2023-08-10 20:00] VITALS: BP 109/57; PULSE 65; RESP 20; O2SAT 95
[2023-08-11 04:00] VITALS: BP 118/54; PULSE 67; RESP 20; TEMP 98.2; O2SAT 96
[2023-08-11 06:54] LABS: Basophils # (auto) 0.1 10 ^3/uL (0-0.2); Eosinophils # (auto) 0.1 10 ^3/uL (0-0.8); Eosinophils % (auto) 1.5 % (0.0-7.0); Hematocrit 38.8 % (41.0-53.0); Hemoglobin 12.5 g/dL (13.5-17.5); Lymphocytes # (auto) 0.7 10 ^3/uL (0.4-5.4); Lymphocytes % (auto) 7.2 % (10.0-50.0); Mean Corpuscular Hemoglobin 29.9 pg (28.0-32.0); Mean Corpuscular Hgb Conc. 32.3 g/dL (32.0-36.0); Mean Corpuscular Volume 92.4 fL (80.0-100.0); Monocytes # (auto) 0.7 10 ^3/uL (0-1.3); Monocytes % (auto) 7.3 % (0.0-12.0); Neutrophils # (auto) 8.1 10 ^3/uL (1.6-8.6); Nucleated Red Blood Cells % 0.2 %; Red Blood Cells 4.19 10^6/uL (4.5-5.90); Red Cell Distribution Width 14.8 % (11.8-14.3); White Blood Cell 9.8 10^3/uL (4.4-10.8)
[2023-08-11 07:11] LABS: Alanine Aminotransferase 75 U/L (7-40); Albumin 2.9 g/dL (3.2-4.8); Alkaline Phosphatase 69 U/L (46-116); Anion Gap 8 (5-15); Aspartate Aminotransferase 48 U/L (13-40); BUN/Creatinine Ratio 27.4 (10.0-20.0); Blood Urea Nitrogen 37 mg/dL (9-23); Calcium 8.2 mg/dL (8.7-10.4); Carbon Dioxide 26 mmol/L (20-30); Chloride 103 mmol/L (98-107); Glucose 77 mg/dL (74-106); Potassium 4.5 mmol/L (3.5-5.1); Sodium 137 mmol/L (136-145); Total Protein 5.2 g/dL (5.7-8.2)
[2023-08-11 08:06] LABS: AFP Serum Tumor Marker 1.9 ng/mL (0.0-6.4); PSA Free 0.03 ng/mL; Prostate Specific Antigen 0.2 ng/mL (0.0-4.0)
[2023-08-11] MEDS: MUPIROCIN 2% OINT 15gm or 22gm FOR MRSA NARES EACHNOSTRI SCH (10:00)
[2023-08-11] MEDS: ASPirin 81 mg TAB PO SCH (10:18)
[2023-08-11] MEDS: LACTULOSE 20Gm/30ML SOLN PO ONE (10:52)
[2023-08-11 11:24] VITALS: BP 102/59; PULSE 65; RESP 20; TEMP 98.1; O2SAT 96
[2023-08-11 11:52] LABS: Folate (Folic Acid) 13.14 ng/mL (>5.38)
[2023-08-11 14:36] VITALS: BP 106/57; PULSE 68; RESP 20; TEMP 98.2; O2SAT 96
== END 2023-08-11 15:12 | disposition hospice, inpatient (51) | DRG 871 ==
LOC: EDBD 09:23 → ER 09:23 → TELE 13:51 → DOU IN ICU 18:19 → TELE-WESTW 07-29 22:18 → WEST WING 08-01 15:42 → CENTRAL 08-02 22:11
PROVIDERS: ADMIT Internal Medicine Pulmonary Disease; ATTEND Internal Medicine
DX: A41.9 Sepsis, unspecified organism (principal); I21.A1 Myocardial infarction type 2; N17.0 Acute kidney failure with tubular necrosis; J96.01 Acute respiratory failure with hypoxia; I50.43 Acute on chronic combined systolic (congestive) and diastolic (congestive) heart failure; J15.69 Pneumonia due to other Gram-negative bacteria; J15.9 Unspecified bacterial pneumonia; R64 Cachexia; I48.20 Chronic atrial fibrillation, unspecified; Z68.1 Body mass index [BMI] 19.9 or less, adult; Z66 Do not resuscitate; E86.0 Dehydration; I11.0 Hypertensive heart disease with heart failure; K21.9 Gastro-esophageal reflux disease without esophagitis; Z20.822 Contact with and (suspected) exposure to COVID-19; E87.6 Hypokalemia; I34.0 Nonrheumatic mitral (valve) insufficiency; Z91.81 History of falling
CPT/HCPCS: 36415; 36600; 70450; 71045; 71250; 74176; 76604; 80048; 80053; 80061; 80074; 81001; 82105; 82378; 82607; 82746; 82805; 83036; 83605; 83615; 83735; 83880; 84100; 84154; 84443; 84484; 85007; 85025; 85027; 85379; 85610; 85730; 86301; 87040; 87081; 87086; 87426; 93005; 93306; 93970; 94640; 96365; 96367; 96368; 96375; 97110; 97116; 97163; 97530; 99291; G0378; J2001; J3480